=== PATIENT | male | born 1940 | race Caucasian/White ===

== ENCOUNTER 2016-08-31 16:50 | Inpatient (IN) | payer OTHER ==
[~2016-08-31] VITALS: Ht 180.3 cm; Wt 79.8 kg
--- NOTE | ~2016-08-31 | EKG ---
[place] [address] [facility] [place] [address] [place] [address] ELECTROCARDIOGRAM REPORT Name: JANI CHAN Room #: 309-P ADM IN M.R.#: [id number] Admission: 08/31/16 Attend Phys: Kelby Nelson MD Discharge: Date of : 40 Report #: [id number] THIS REPORT FOR: //name// [facility] Test Date: 2016-09-01 Test Time: 13:30:44 Pat Name: JANI CHAN Department: Room: 309 P Gender: M Broadcast Systems Engineer: Portia RODNEY : 1940 Requested By: Katya Banuelos Order Number: [id number] MD: Brant Pettit Measurements Intervals [place] Rate: 122 P: 237 MD: 185 QRS: -40 QRSD: 124 T: 85 QT: 333 QTc: 475 Interpretive Statements Atrial fibrillation Right bundle branch block LVH with IVCD and secondary repol abnrm Compared to ECG 08/31/2016 17:19:39 Ectopic atrial rhythm no longer present Electronically Signed On 09-01-2016 15:51:03 SASH FINISHER by Brant Pettit [email or web address] <ELECTRONICALLY SIGNED> By: Brant Pettit MD 09/01/16 1551 1330 1330 Brant Pettit MD /EPI
--- NOTE | ~2016-08-31 | HC ---
[facility] [place] [address] [place] [address] CONSULTATION Name: JANI CHAN Room #: 251-P [facility] IN M.R.#: [id number] Admission: 08/31/16 Attend Phys: Kelby Nelson MD Discharge: 09/04/16 Date of : 40 Report #: [id number] THIS REPORT FOR: //name// CC: Zhou Nelson DATE OF SERVICE: 09/01/2016 REASON FOR CONSULTATION: Elevated troponin. HISTORY OF PRESENT ILLNESS: This is a very pleasant 75-year-old gentleman with extensive vascular disease history, who presented for GI bleeding. The patient denied any chest pain, pressure, tightness or heaviness until the morning of consultation when he had episode of retrosternal discomfort which was relieved with nitroglycerin times 3. His initial hemoglobin was significantly decreased and he was on anticoagulants, i.e., Eliquis, for his elevated CHADS-VASc score with atrial fibrillation. He denies any orthopnea, syncope or near syncope. No palpitations, otherwise. He had not had any recent chest discomfort until this episode this morning. Upon admission, his troponin was slightly elevated and they did rise. He denied any dyspnea, orthopnea, PND otherwise. PAST MEDICAL HISTORY: 1. Coronary artery disease, status post aortocoronary bypass grafting in the past. 2. Peripheral vascular disease with peripheral procedures performed. 3. Atrial fibrillation, elevated CHADS-VASc score. 4. Lower extremity recurrent infections. 5. Sweet syndrome. 6. Rheumatoid pulmonary nodules. ALLERGIES: CIPROFLOXACIN. PAST SURGICAL HISTORY: 1. Colon resection. 2. Aortocoronary bypass grafting. 3. Cholecystectomy. 4. Appendectomy. 5. Right BKA. 6. T and A. 7. Toes on left foot amputated. MEDICATIONS: At home are pantoprazole, DuoNeb, zinc cream, aspirin, MiraLax, nitroglycerin. [facility] [address] [place] [address] CONSULTATION Name: JANI CHAN Room #: 251-P [facility] IN [facility].#: [id number] Admission: 08/31/16 Attend Phys: Kelby Nelson MD Discharge: 09/04/16 Date of : 40 Report #: [id number] FAMILY HISTORY: Significant for hypertension and cancer, otherwise no premature cardiovascular or neurovascular disease in first-degree or second-degree relatives. SOCIAL HISTORY: The patient is a former smoker, having quit more than a year ago. Consumes alcohol socially. Does not use recreational drugs. Does not follow a particular exercise regimen or dietary restriction. He did live at home with his spouse prior to being at [facility]. LABORATORY DATA: Demonstrates a potassium of 4.2, BUN and creatinine of 55/1.1 with an estimated GFR of 65. H and H is 6.7 and 19.8 on admission, currently 8.8 and 26.3. RADIOLOGIC: No acute processes are noted on chest x-ray. REVIEW OF SYSTEMS: Except for symptoms previously mentioned and those commensurate with comorbid states, the 10 point review of system is negative. PHYSICAL EXAMINATION: GENERAL: Well-developed, well-nourished white male. VITAL SIGNS: Noted and reviewed in the chart. He is status post right BKA with left toes amputated. HEENT: Normocephalic, atraumatic. Pupils are equal, round, reactive to light and accommodation. Extraocular muscles are intact. Sclerae and conjunctivae are anicteric. NECK: JVD is normal. Carotid upstrokes are bilaterally symmetrical. No bruits are heard. No thyromegaly. No lymphadenopathy. LUNGS: Clear to auscultation. No wheezes, rhonchi or crackles. No CVA tenderness. CARDIAC: Demonstrates an irregularly irregular rhythm with a controlled rate. Soft systolic murmur at the apex. No diastolic murmurs are noted. ABDOMEN: Soft, nontender, nondistended. Normal bowel sounds. EXTREMITIES: Without cyanosis, clubbing or edema. Distal pulses are intact. DTR symmetrical. NEUROLOGIC: Cranial nerves 2-12 are grossly normal and symmetrical. PSYCHIATRIC: Alert, oriented with normal affect. SKIN: Warm and dry. IMPRESSION: 1. Unstable angina versus small non-Q wave myocardial infarction. Troponin is slightly up. He only had 1 episode of chest discomfort prior to increasing his hemoglobin with transfusions. In view of this, I would continue with further medical regimen due to the fact that he is not a revascularization candidate at this juncture. He is actively bleeding and any intervention would ensue anticoagulation both short term and fci. He is electrically hemodynamically stable now, so we will augment his medications with beta [address] [address] CONSULTATION Name: JANI CHAN Room #: 251-P DIS IN M.R.#: [id number] Admission: 08/31/16 Attend Phys: Kelby Nelson MD Discharge: 09/04/16 Date of : 40 Report #: [id number] blockade, long-acting nitrates, etc. We will add statins for long-term benefit and plaque stabilization. 2. Atrial fibrillation and issue with rapid ventricular response, on IV diltiazem, controlled. He had an elevated CHADS-VASc score of at least 5. We will need to consider options after stabilization of bleeding for long-term management of high-risk embolic events. 3. Anemia, multifactorial. 4. Coronary artery disease, as stated above. <ELECTRONICALLY SIGNED> By: Ethan Olivo MD 09/05/16 1305 1040 1246 Ethan Olivo MD /nt
--- NOTE | ~2016-08-31 | DEA ---
[facility] [place] [address] [place] [address] SUMMARY Name: JANI CHAN Room #: 251-P [facility] IN M.R.#: [id number] Admission: 08/31/16 Attend Phys: Kelby Nelson MD Discharge: 09/04/16 Date of : 40 Report #: [id number] THIS REPORT FOR: //name// CC: Zhou Nelson DATE OF SERVICE: 09/04/2016 DATE OF : 09/04/2016. This patient is admitted initially on 08/31/2016. He had multiple medical problems. The patient was transferred from long-term acute care. He had anemia, GI bleed, elevated troponin, possibly sepsis. The patient admitted into the hospital. During the hospitalization, he has continued to decline. He had continued GI bleed. GI consulted and the patient also had a non-STEMI, not able to do any procedure and then, also he had multiple transfusions possibly had HCAP, recently treated for bacteremia at the LT[facility]. The patient also had sepsis progressively declining, not getting better. Also, see all the notes in the chart for further details. The patient was transferred to ICU on 09/04/2016. See all the notes for further details. Family had made the patient DNR and ultimately, he . Please see all the notes in the chart for further details. He was DNR and all the information, the latest note in the chart, see for details. <ELECTRONICALLY SIGNED> By: Kelby Nelson MD 09/14/16 1354 1319 1601 Kelby Nelson MD /nt
--- NOTE | ~2016-08-31 | HC ---
[facility] [place] [address] [place] [address] CONSULTATION Name: JANI CHAN Room #: 251-P [facility] IN M.R.#: [id number] Admission: 08/31/16 Attend Phys: Kelby Nelson MD Discharge: 09/04/16 Date of : 40 Report #: [id number] THIS REPORT FOR: //name// CC: Zhou Nelson PRIMARY CARE PHYSICIAN: Unknown. REFERRING PHYSICIAN: Kelby Nelson M.D. REASON FOR REFERRAL: Acute respiratory failure. HISTORY OF PRESENT ILLNESS: The patient is a 75-year-old white male who was admitted with anemia and elevated troponin. He was admitted on 08/31/2016. Since admission, he has had progressive decline in his current condition. He developed confusion and delirium. He was found to be anemic with lower GI bleed. He was also found to have non-ST wave elevation myocardial infarction. Earlier today, the patient was lethargic, unresponsive and dyspneic. He then started to develop hypoxia. A pulmonary consultation was requested. At present, the patient is in moderate distress, nonresponsive and tachypneic. He is on 100% nonrebreather. I am not able to obtain much history. PAST MEDICAL HISTORY: Notable for recurrent CVAs starting in 03/2016. According to family, his health started to decline around March of last year following his recurrent CVAs. Recent hospitalization at [facility] for CVA. He was also treated for DVT involving his right upper extremity along with vascular insufficiency requiring amputation involving his left foot. He has a chronic wound in his left groin. He developed bacteremia with sepsis. The patient was also been treated for osteomyelitis, cellulitis of his lower extremities, apparent severe peripheral vascular disease, atrial fibrillation, multiple CVAs, with right-sided hemiplegia, coronary artery disease undergoing coronary artery bypass surgery and right BKA. The patient has a long history of rheumatoid arthritis with pulmonary involvement including interstitial lung disease. PAST SURGICAL HISTORY: Remarkable for cholecystectomy, appendectomy, tonsillectomy, adenoidectomy and coronary artery bypass surgery as mentioned above. ALLERGIES: CIPRO, reactions not specified. MEDICATIONS: List reviewed. It is in the MAR. FAMILY HISTORY: Noncontributory. SOCIAL HISTORY: He is , has smoked most of his life but quit in the [address] [address] CONSULTATION Name: JANI CHAN Room #: 251-P [facility] IN M.R.#: [id number] Admission: 08/31/16 Attend Phys: Kelby Nelson MD Discharge: 09/04/16 Date of : 40 Report #: [id number] recent past. He does drink occasional alcohol. REVIEW OF SYSTEMS: Deferred as the patient is in respiratory distress. PHYSICAL EXAMINATION: GENERAL: He is in moderate distress, tachypneic, not responsive. VITAL SIGNS: Temperature maximum is 100.2 degrees Fahrenheit, pulse is 100, respiratory rate is 40, blood pressure is 110/51 mmHg and saturation currently is 92%; it had been as low as mid 80%. HEENT: Normocephalic and atraumatic. NECK: Supple, without any lymphadenopathy or thyromegaly. CHEST: Breath sounds are coarse bilaterally. CARDIOVASCULAR: Heart sounds are distant. No obvious murmurs or gallop. Pulses are reduced to less than 1/4+ bilaterally. ABDOMEN: Soft, no masses felt. Nontender. GENITOURINARY: Deferred. RECTAL: Deferred. EXTREMITIES: Right upper extremity has 2+ edema. Left upper extremity shows no cyanosis, clubbing or edema. He has right BKA. Multiple toe amputations on the left foot. He has a wound VAC in his left groin. LABORATORY DATA: Portable chest x-ray shows infiltrates involving the right lung field. Mild bilateral interstitial infiltrate is also noted. 2D echocardiogram showed ejection fraction of 60%, right atrium is dilated, left atrium is dilated, aortic valve is mildly calcified, [id number] mitral regurgitation, mild pulmonic regurgitation and pulmonary artery pressure measured 26 mmHg. Troponin is 2.9, it peaked at 6.2. C. diff toxin was negative. Sodium 149, potassium 3.7, chloride 113, CO2 of 22, BUN is 43 and creatinine is 1.5; on admission, it was 0.9. Liver function tests are markedly abnormal. His hemoglobin is 9.6 and WBC is 10,200. Albumin is 1.5. Arterial blood gas revealed pH 7.42, pCO2 of 28 and pO2 of 300 on FiO2 of 100%. IMPRESSION: 1. Acute hypoxic respiratory failure in this 75-year-old white male with a long history of rheumatoid arthritis, pulmonary involvement with interstitial lung disease, history of recurrent cerebrovascular accidents with right-sided hemiplegia and severe peripheral vascular disease. The patient currently appears to have severe sepsis. Chest x-ray suggests pneumonia, especially on the right, in this immunocompromised host. 2. Right-sided infiltrate. Pneumonia is presumed, aspiration and gram negative in this immunocompromised patient. We will also need to consider opportunistic infections. For now, would recommend broad-spectrum antibiotics to cover for the aforementioned processes. [address] [address] CONSULTATION Name: JANI CHAN Room #: 251-P DIS IN [place]rell#: [id number] Admission: 08/31/16 Attend Phys: Kelby Nelson MD Discharge: 09/04/16 Date of : 40 Report #: [id number] 3. Long history of rheumatoid arthritis, pulmonary involvement. The patient has been told that he has interstitial lung disease related to his rheumatoid arthritis. This is likely exacerbating his respiratory compromise. 4. Non-ST wave myocardial infarction with long history of coronary artery disease, severe peripheral vascular disease, status post past coronary artery bypass surgery. 5. Acute kidney injury due to severe sepsis. 6. Elevated liver function tests, suspect related to sepsis. 7. Anemia, lower gastrointestinal bleed. 8. Severe peripheral vascular disease with a right below-knee amputation, multiple left toe amputations. 9. Recent lower extremities cellulitis. 10. Recent osteomyelitis. 11. Multiple cerebrovascular accidents with right sided hemiplegia. 12. Progressive debility and weakness. 13. Severe protein-calorie malnutrition. PLAN: The patient will be transferred to ICU, the patient will likely need intubation, but we will start with noninvasive positive pressure ventilation. Would recommend broad-spectrum antibiotics to cover for presumed aspiration pneumonia. Gram negative ____ cultures should be obtained. I am also looking for possible opportunistic infections in this immunocompromised patient. Sepsis protocol will be initiated along with DVT and GI prophylaxis. I had a long discussion with the patient and the patient's and children. The overall outlook is felt to be poor given his progressive decline in his health since March along with multi comorbid conditions. After discussion, the family has decided to make him DNR. Once all the children have arrived, they will contemplate possible comfort care. For now, we will continue current treatment. DNR has been noted. Thank you for this consultation. <ELECTRONICALLY SIGNED> By: Froy Cornejo MD 09/09/16 1634 02 2209 Froy Cornejo MD /nt
--- NOTE | ~2016-08-31 | EKG ---
[address] [place] [address] ELECTROCARDIOGRAM REPORT Name: ETHAN CHAN Room #: 309-P ADM IN M.R.#: [id number] Admission: 08/31/16 Attend Phys: Kelby Nelson MD Discharge: Date of : 40 Report #: [id number] THIS REPORT FOR: //name// [facility] Test Date: 2016-09-03 Test Time: 20:54:05 Pat Name: ETHAN LIEBERMANWIG Department: Room: 309 P Gender: M Energy Trading Analyst: taran : 1940 Requested By: Kelby Nelson Order Number: [id number] MD: Ethan Bacon Measurements Intervals [place] Rate: 90 P: 201 [place]: 176 QRS: -35 QRSD: 126 T: -5 QT: 411 QTc: 503 Interpretive Statements Sinus or ectopic atrial rhythm Atrial premature complexes, Frequent Right bundle branch block Compared to ECG 09/02/2016 07:02:56 No significant change was found Electronically Signed On 09-04-2016 14:28:20 BOTTLE MACHINE OPERATOR by Ethan Bacon [email or web address] <ELECTRONICALLY SIGNED> By: Ethan Bacon MD, [facility] 09/04/16 1428 53 53 Ethan Bacon MD, [facility] /EPI
--- NOTE | ~2016-08-31 | EKG ---
[place] [address] [facility] [place] [address] ELECTROCARDIOGRAM REPORT Name: ETHAN CHAN Room #: 309-P ADM IN M.R.#: [id number] Admission: 08/31/16 Attend Phys: Kelby Nelson MD Discharge: Date of : 40 Report #: [id number] THIS REPORT FOR: //name// [facility] Test Date: 2016-08-31 Test Time: 17:19:39 Pat Name: ETHAN ROCIO Department: Room: 309 Gender: M Big Data Admin: [facility] [employer] : 1940 Requested By: Charan Shetty Order Number: [id number] MD: Ethan Bacon Measurements Intervals [place] Rate: 83 P: 248 [place]: 201 QRS: -42 QRSD: 129 T: QT: 405 QTc: 476 Interpretive Statements Sinus or ectopic atrial rhythm Atypical RBBB LVH with IVCD and secondary repol abnrm Borderline prolonged QT interval No previous ECG available for comparison Electronically Signed On 09-01-2016 8:29:22 KEELER POLYGRAPH OPERATOR by Ethan Bacon [email or web address] <ELECTRONICALLY SIGNED> By: Ethan Bacon MD, [facility] 09/01/16 0829 1719 171 Ethan Bacon MD, [facility] /EPI
--- NOTE | ~2016-08-31 | 2DMMODE ---
[facility] [place] [address] 2 D/M-MODE ECHOCARDIOGRAM Name: JANI CHAN Room #: 309-P [facility] IN M.R.#: [id number] Admission: 08/31/16 Attend Phys: Sola Mora Discharge: Date of : 40 Date of Service: 09/01/16 1346 Report #: [id number] THIS REPORT FOR: //name// Transthoracic Echocardiography Ordering physician: Katya Banuelos Referring physician: Zhou Reilly Brianna Last Dipper: TEREZA Mcintyre Indications/History: CAD, Atrial fibrillation. BP: 141 / HR: Height: 70in Weight: 174.6lb 86 Study data: M-mode, complete 2D, complete spectral Doppler, and color Doppler. Location: Bedside. Routine. Image quality was adequate. 2D measurements Normal Normal LVID ED 52.3mm 36-57 IVS ED 15.1mm 6-11 LVID ES 33.7mm 23-40 LVPW ED 15mm 6-11 LA volume 50ml/m2 16-28 AoRoot diam 37.5mm 21-37 index ED LVOT diameter 21mm 18-23 Findings: Left ventricle: The cavity size was normal. Wall thickness was increased in a pattern of moderate LVH. Systolic function was normal. The estimated ejection fraction was in the range of 60% to 65%. Wall motion was normal. Right ventricle: The cavity size was at the upper limits of normal. Systolic function was normal. Right atrium: The atrium was dilated. Left atrium: The atrium was dilated. Volume index: 50ml/m2 (S). Aortic valve: Mildly calcified leaflets. Doppler: There was no stenosis. No regurgitation. Peak velocity: 197.4cm/s (S). Peak gradient: 15.6mm Hg (S). Mitral valve: Mildly calcified annulus. Doppler: There [facility] [address] [place] [address] 2 D/M-MODE ECHOCARDIOGRAM Name: JANI CHAN Room #: 309-P ADM IN [facility].#: [id number] Admission: 08/31/16 Attend Phys: Sola Mora Discharge: Date of : 40 Date of Service: 09/01/16 1346 Report #: [id number] was no evidence for stenosis. Mild to moderate regurgitation. Tricuspid valve: Structurally normal valve. Doppler: There was no evidence for stenosis. Mild regurgitation. Regurgitant peak velocity: 227.1cm/s. Peak RV-RA gradient: 21mm Hg (S). Pulmonic valve: Structurally normal valve. Doppler: There was no evidence for stenosis. Trivial regurgitation. Pericardium: There was no pericardial effusion. Aorta: Aortic root: The aortic root was normal in size. Pulmonary artery: Systolic pressure was estimated to be 26mm Hg. Diastolic function: The study was not technically sufficient to allow evaluation of LV diastolic dysfunction due to atrial fibrillation. Systemic veins: Inferior vena cava: The vessel was normal in size; the respirophasic diameter changes were in the normal range (= 50%). Conclusions 1. Left ventricle: The cavity size was normal. Wall thickness was increased in a pattern of moderate LVH. Systolic function was normal. The estimated ejection fraction was in the range of 60% to 65%. 2. Right atrium: The atrium was dilated. 3. Left atrium: The atrium was dilated. 4. Aortic valve: Mildly calcified leaflets. No regurgitation. 5. Mitral valve: Mildly calcified annulus. Mild to moderate regurgitation. 6. Pulmonic valve: Trivial regurgitation. 7. Tricuspid valve: Mild regurgitation. 8. Pulmonary arteries: Systolic pressure was estimated to be 26mm Hg. <ELECTRONICALLY SIGNED> By: Ethan Olivo MD 09/01/16 1445 1346 1445 Ethan Olivo MD /junie
--- NOTE | ~2016-08-31 | EKG ---
[address] [address] ELECTROCARDIOGRAM REPORT Name: ETHAN CHAN Room #: 251-P [facility] IN M.R.#: [id number] Admission: 08/31/16 Attend Phys: Kelby Nelson MD Discharge: 09/04/16 Date of : 40 Report #: [id number] THIS REPORT FOR: //name// [facility] Test Date: 2016-09-03 Test Time: 23:53:15 Pat Name: ETHAN CHAN Department: Room: [facility] Gender: M Service Dismantler: MAGNUS : 1940 Requested By: James Mendoza Order Number: [id number] MD: Ethan Bacon Measurements Intervals [place] Rate: 100 P: 248 [place]: 191 QRS: -53 QRSD: 127 T: 39 QT: 380 QTc: 491 Interpretive Statements Sinus or ectopic atrial tachycardia Atrial premature complex Right bundle branch block Inferior infarct, age indeterminate Compared to ECG 09/02/2016 07:02:56 Atrial premature complex(es) now present Criteria for inferior infarct now present Electronically Signed On 09-05-2016 8:04:43 CRINKLING MACHINE OPERATOR by Ethan Bacon [email or web address] <ELECTRONICALLY SIGNED> By: Ethan Bacon MD, [facility] 09/05/16 0804 2353 2353 Ethan Bacon MD, [facility] /EPI
--- NOTE | ~2016-08-31 | EKG ---
[address] [address] ELECTROCARDIOGRAM REPORT Name: JANI CHAN Room #: 309-P ADM IN M.R.#: [id number] Admission: 08/31/16 Attend Phys: Kelby Nelson MD Discharge: Date of : 40 Report #: [id number] THIS REPORT FOR: //name// [facility] Test Date: 2016-09-02 Test Time: 07:02:56 Pat Name: JANI CHAN Department: Room: 309 P Gender: M Security Chief Museum: chandler : 1940 Requested By: Katya Banuelos Order Number: [id number] MD: Brant Pettit Measurements Intervals [place] Rate: 119 P: 266 DE: 209 QRS: -38 QRSD: 123 T: QT: 347 QTc: 489 Interpretive Statements Atrial fibrillation Right bundle branch block Abnormal lateral Q waves Electronically Signed On 09-02-2016 8:30:27 STRIPER by Brant Pettit [email or web address] <ELECTRONICALLY SIGNED> By: Brant Pettit MD 09/02/16829 0702 1 Brant Pettit MD /BRIDGETTE
[2016-08-31 16:52] VITALS: BP 144/71
[2016-08-31 17:31] LABS: MONOCYTES 2.8 % (1.0-8.0); RBC 2.24 mil/uL (4.50-6.00); RDW 18.5 % (10.5-14.5)
[2016-08-31 17:32] LABS: BASOPHILS 0.6 % (0.0-2.0); LYMPHOCYTES 9.4 % (24.0-44.0); MCH 29.8 pg (26.0-34.0); MCHC 33.7 % (28.0-37.0); MCV 88.5 fL (80.0-100.0); PLATELET COUNT 145 thou/uL (150-400); POLYS 86.2 % (36.0-66.0); WBC 10.4 thou/uL (4.0-11.0)
[2016-08-31 17:39] LABS: MANUAL DIFF NO
[2016-08-31 17:40] LABS: HEMATOCRIT 19.8 % (42.0-52.0); HEMOGLOBIN 6.7 gm/dL (14.0-18.0)
[2016-08-31] MEDS ORDERED: PROTONIX40 M1 PO (17:53)
[2016-08-31 17:54] LABS: ALBUMIN 1.7 g/dL (3.4-5.0); CALCIUM 8.3 mg/dL (8.5-10.1); CREATININE 1.1 mg/dL (0.6-1.3); MAGNESIUM 1.5 mg/dL (1.8-2.4); TOTAL BILIRUBIN 0.3 mg/dL (<0.1-1.0); TOTAL PROTEIN 4.6 g/dL (6.4-8.2)
[2016-08-31] MEDS ORDERED: DUONEB 2.5-0.5 M3 ML INH (17:54)
[2016-08-31] MEDS ORDERED: ASPIR 8181 MG PO (17:55)
[2016-08-31] MEDS ORDERED: UNGUENTINE OINT28 GM TP (17:55)
[2016-08-31] MEDS ORDERED: CENTRUM SILVER1 EAC4 PO (17:56)
[2016-08-31] MEDS ORDERED: VITAMINC500 PO (17:56)
[2016-08-31] MEDS ORDERED: CYMBALTA30 MG PO (17:56)
[2016-08-31] MEDS ORDERED: MIRALAX17 GM PO (17:56)
[2016-08-31] MEDS ORDERED: ATORVASTATIN CA40 MG PO (17:56)
[2016-08-31] MEDS ORDERED: ORAZINC220 MG PO (17:57)
[2016-08-31] MEDS ORDERED: CARDIZEM CD120 MG PO (17:57)
[2016-08-31 17:58] LABS: TROPONIN-I 0.77 ng/mL (<0.04-0.07)
[2016-08-31] MEDS ORDERED: ZOSYN 3.3753.375 GM IV (17:58)
[2016-08-31] MEDS ORDERED: LINEZOLID600 MG PO (18:00)
[2016-08-31] MEDS ORDERED: GUAIFENESIN1200 MG PO (18:00)
[2016-08-31] MEDS ORDERED: NEURONTIN 300300 M1 PO (18:01)
[2016-08-31] MEDS ORDERED: PROBIOTIC1 EAC1 PO (18:01)
[2016-08-31] MEDS ORDERED: CILOSTAZOL 100100 M1 PO (18:03)
[2016-08-31] MEDS ORDERED: SULFAZINE500 M1 PO (18:03)
[2016-08-31 18:04] LABS: POTASSIUM 4.2 mmol/L (3.5-5.1)
[2016-08-31] MEDS ORDERED: MELATONIN3 MG PO (18:04)
[2016-08-31] MEDS ORDERED: MIDODRINE HCL10 MG PO (18:04)
[2016-08-31] MEDS ORDERED: SILVADENE20 GM TP (18:05)
[2016-08-31] MEDS ORDERED: IRON325 PO (18:06)
[2016-08-31] MEDS ORDERED: PREDNISONE 20 M20 MG PO (18:06)
[2016-08-31] MEDS ORDERED: OXYCONTIN20 M1 PO (18:07)
[2016-08-31] MEDS ORDERED: NITROSTAT0.4 M1 SL (18:07)
[2016-08-31] MEDS ORDERED: OXYCODONE HCL 55 MG PO (18:08)
[2016-08-31] MEDS ORDERED: LOPERAMIDE 2 MG2 M1 PO (18:08)
[2016-08-31 19:06] VITALS: BP 123/61
[2016-08-31 19:45] VITALS: BP 137/71
[2016-08-31 21:25] VITALS: BP 137/71; BP 144/78
[2016-08-31 23:57] VITALS: BP 144/78
[2016-09-01] VITALS (7 sets, daily range): BP systolic 124–167; BP diastolic 57–95
[2016-09-01 05:12] LABS: HEMATOCRIT 24.2 % (42.0-52.0); MCH 29.5 pg (26.0-34.0); MCHC 33.2 % (28.0-37.0); RBC 2.72 mil/uL (4.50-6.00); RDW 16.8 % (10.5-14.5); WBC 8.8 thou/uL (4.0-11.0)
[2016-09-01 08:41] LABS: HEMATOCRIT 26.3 % (42.0-52.0); HEMOGLOBIN 8.8 gm/dL (14.0-18.0)
[2016-09-01 20:01] LABS: HEMATOCRIT 24.4 % (42.0-52.0); HEMOGLOBIN 8.4 gm/dL (14.0-18.0)
[2016-09-02] VITALS (9 sets, daily range): BP systolic 111–138; BP diastolic 59–82
[2016-09-02 06:14] LABS: HEMATOCRIT 24.4 % (42.0-52.0); MCH 29.1 pg (26.0-34.0); MCHC 32.7 % (28.0-37.0); RBC 2.74 mil/uL (4.50-6.00); WBC 13.2 thou/uL (4.0-11.0)
[2016-09-02 06:30] LABS: CALCIUM 8.5 mg/dL (8.5-10.1); CREATININE 0.9 mg/dL (0.6-1.3); POTASSIUM 3.5 mmol/L (3.5-5.1)
[2016-09-03 00:30] VITALS: BP 135/82
[2016-09-03 05:00] VITALS: BP 130/71
[2016-09-03 05:32] LABS: MCH 29.3 pg (26.0-34.0); MCHC 33.3 % (28.0-37.0); MCV 87.9 fL (80.0-100.0); RBC 3.41 mil/uL (4.50-6.00); RDW 15.7 % (10.5-14.5); WBC 14.2 thou/uL (4.0-11.0)
[2016-09-03 05:49] LABS: CALCIUM 8.4 mg/dL (8.5-10.1); CREATININE 0.8 mg/dL (0.6-1.3); POTASSIUM 3.4 mmol/L (3.5-5.1)
[2016-09-03 07:30] VITALS: BP 119/62
[2016-09-03 11:00] VITALS: BP 137/72
[2016-09-03 16:00] VITALS: BP 108/64
[2016-09-03 20:02] VITALS: BP 125/64
[2016-09-03 21:26] LABS: ABG SAMPLE TYPE ARTERIAL; BE(vivo) -2.3 mmol/L (-2 to +3); HCO3 19.5 mmol/L (22.0-26.0); O2(CT) 13.9 mL/dL (15.0-23.0); O2Hb 92.7 % (92.0-98.0); PCO2 24.8 mmHg (35.0-45.0); PO2 67.1 mmHg (80.0-100.0); pH 7.514 (7.360-7.450); sO2 95.3 % (92.0-98.0); tCO2 20.3 mmol/L (24.0-30.0)
[2016-09-03 21:27] LABS: STICK SITE L.BRACHIAL
[2016-09-03 21:32] LABS: BASOPHILS 0.8 % (0.0-2.0)
[2016-09-03 21:33] LABS: ABSOLUTE NEUTROPHILS 9.1 thou/uL (1.4-8.2); EOSINOPHILS 0.4 % (0.0-3.0); HEMATOCRIT 29.2 % (42.0-52.0); LYMPHOCYTES 18.8 % (24.0-44.0); MCH 29.7 pg (26.0-34.0); MCHC 34.2 % (28.0-37.0); MONOCYTES 9.6 % (1.0-8.0); PLATELET COUNT 38 thou/uL (150-400); POLYS 70.4 % (36.0-66.0); RBC 3.36 mil/uL (4.50-6.00)
[2016-09-03 21:38] LABS: MANUAL DIFF NO
[2016-09-03 21:41] LABS: CALCIUM 8.4 mg/dL (8.5-10.1); CREATININE 1.1 mg/dL (0.6-1.3); POTASSIUM 3.8 mmol/L (3.5-5.1)
[2016-09-03 22:13] LABS: PLATELET ESTIMATE DECREASED
[2016-09-04] VITALS (22 sets, daily range): BP systolic 52–127; BP diastolic 30–87
[2016-09-04 04:14] LABS: URINE BILIRUBIN 1+ (Negative); URINE BLOOD TRACE (Negative); URINE COLOR YELLOW; URINE GLUCOSE-RANDOM* NEGATIVE (Negative); URINE KETONES TRACE (Negative); URINE LEUKOCYTES-REFLEX NEGATIVE (Negative); URINE PROTEIN (DIPSTICK) TRACE (Negative); URINE SPECIFIC GRAVITY 1.025 (1.003-1.035); URINE UROBILINOGEN 0.2 E.U./dl (0.2-1.0)
[2016-09-04 04:18] LABS: ICTOTEST (BILI CONFIRMATORY) Positive (Negative)
[2016-09-04 06:01] LABS: HEMOGLOBIN 9.5 gm/dL (14.0-18.0); RDW 16.3 % (10.5-14.5)
[2016-09-04 06:03] LABS: MCH 29.9 pg (26.0-34.0); MCHC 34.1 % (28.0-37.0); MCV 87.7 fL (80.0-100.0); RBC 3.19 mil/uL (4.50-6.00); WBC 12.5 thou/uL (4.0-11.0)
[2016-09-04 06:17] LABS: CALCIUM 8.4 mg/dL (8.5-10.1); CREATININE 1.2 mg/dL (0.6-1.3); POTASSIUM 3.6 mmol/L (3.5-5.1)
[2016-09-04 16:32] LABS: MCHC 34.5 % (28.0-37.0)
[2016-09-04 16:34] LABS: HEMATOCRIT 27.7 % (42.0-52.0); HEMOGLOBIN 9.6 gm/dL (14.0-18.0); MCH 30.2 pg (26.0-34.0); MCV 87.6 fL (80.0-100.0); RBC 3.17 mil/uL (4.50-6.00); RDW 16.4 % (10.5-14.5); WBC 10.2 thou/uL (4.0-11.0)
[2016-09-04 16:38] LABS: CALCIUM 8.1 mg/dL (8.5-10.1); CREATININE 1.5 mg/dL (0.6-1.3); POTASSIUM 3.7 mmol/L (3.5-5.1)
[2016-09-04 16:43] LABS: ALBUMIN 1.5 g/dL (3.4-5.0); TOTAL BILIRUBIN 0.8 mg/dL (<0.1-1.0); TOTAL PROTEIN 4.5 g/dL (6.4-8.2)
[2016-09-04 19:09] LABS: ABG SAMPLE TYPE ARTERIAL; BE(vivo) -5.3 mmol/L (-2 to +3); HCO3 18.2 mmol/L (22.0-26.0); LACTATE 2.22 mmol/L (0.5-2.0); O2(CT) 14.3 mL/dL (15.0-23.0); O2Hb 98.1 % (92.0-98.0); PCO2 28.5 mmHg (35.0-45.0); PO2 300.1 mmHg (80.0-100.0); Pressure Support 8 cm H20; STICK SITE L.BRACHIAL; TIDAL VOLUME 800 ml; pH 7.423 (7.360-7.450); sO2 99.7 % (92.0-98.0); tCO2 19.1 mmol/L (24.0-30.0)
== END 2016-09-04 22:15 | DRG 871 ==
LOC: ER 16:50 → 3N 18:15 → EROBS 18:15 → 3N 19:10 → ICU 09-04 17:59
PROVIDERS: Emergency Medicine; Family Medicine; Internal Medicine Pulmonary Disease; Nurse Practitioner; Nurse Practitioner Family
PROC: 02HV33Z Insertion of Infusion Device into Superior Vena Cava, Percutaneous Approach (ICD-10-PCS; 2016-09-01)
PROC: 30233N1 Transfusion of Nonautologous Red Blood Cells into Peripheral Vein, Percutaneous Approach (ICD-10-PCS; principal; 2016-09-02)
PROC: 5A09357 Assistance with Respiratory Ventilation, Less than 24 Consecutive Hours, Continuous Positive Airway Pressure (ICD-10-PCS; 2016-09-04)
DX: A41.9 Sepsis, unspecified organism (principal); J96.01 Acute respiratory failure with hypoxia; E43 Unspecified severe protein-calorie malnutrition; I21.4 Non-ST elevation (NSTEMI) myocardial infarction; J18.9 Pneumonia, unspecified organism; K92.2 Gastrointestinal hemorrhage, unspecified; I25.110 Atherosclerotic heart disease of native coronary artery with unstable angina pectoris; N17.9 Acute kidney failure, unspecified; L03.119 Cellulitis of unspecified part of limb; E27.49 Other adrenocortical insufficiency; I69.351 Hemiplegia and hemiparesis following cerebral infarction affecting right dominant side; L98.2 Febrile neutrophilic dermatosis [Sweet]; I48.91 Unspecified atrial fibrillation; D64.9 Anemia, unspecified; I73.9 Peripheral vascular disease, unspecified; M06.9 Rheumatoid arthritis, unspecified; R65.20 Severe sepsis without septic shock; I50.9 Heart failure, unspecified; L89.302 Pressure ulcer of unspecified buttock, stage 2; Z95.1 Presence of aortocoronary bypass graft; Z90.49 Acquired absence of other specified parts of digestive tract; Z98.890 Other specified postprocedural states; Z89.511 Acquired absence of right leg below knee; Z89.432 Acquired absence of left foot; Z68.24 Body mass index [BMI] 24.0-24.9, adult; Z87.891 Personal history of nicotine dependence; Z86.718 Personal history of other venous thrombosis and embolism; Z82.49 Family history of ischemic heart disease and other diseases of the circulatory system; Z88.1 Allergy status to other antibiotic agents; Z79.899 Other long term (current) drug therapy; Z79.82 Long term (current) use of aspirin; Z80.9 Family history of malignant neoplasm, unspecified
CPT/HCPCS: 10096; 10203; 23012